=== PATIENT | male | born 1985 | race Two or more races ===

== ENCOUNTER 2024-06-11 12:21 | Emergency (ER) | payer OTHER, MEDICAID ==
[~2024-06-11] VITALS: Ht 167.6 cm; Wt 95.3 kg
[2024-06-11] MEDS ORDERED: IBUP-1955 PO (13:09)
[2024-06-11] MEDS ORDERED: CYCL5TAB PO (13:09)
[2024-06-11] MEDS ORDERED: LIDO30AD10 TP (13:09)
[2024-06-11] MEDS ORDERED: LIDOCAINE 5% PATCH TD ONE (13:13)
[2024-06-11] MEDS ORDERED: IBUPROFEN 600 MG TABLET ONE (13:14)
[2024-06-11] MEDS: LIDOCAINE 5% PATCH TD ONE (13:16)
[2024-06-11] MEDS: IBUPROFEN 600 MG TABLET PO ONE (13:16)
[2024-06-11 13:30] VITALS: BP 138/92; O2SAT 98
== END 2024-06-11 13:20 | disposition home or self-care (01) ==
LOC: ER 12:21
DX: M54.50 Low back pain, unspecified (principal); M62.838 Other muscle spasm; Z60.2 Problems related to living alone
CPT/HCPCS: A4606; A4663